=== PATIENT | female | born 1970 | race Caucasian/White ===

== ENCOUNTER 2017-10-30 09:34 | Emergency (ER) | payer OTHER ==
[2017-10-30] MEDS: KETOROLAC 30 MG INJ IM (10:23)
== END 2017-10-30 10:33 | disposition home or self-care (01) ==
LOC: FTE 09:34
DX: M62.838 Other muscle spasm (principal); I10 Essential (primary) hypertension
CPT/HCPCS: 81025; 96372; 99284-25